=== PATIENT | female | born 1985 | race Caucasian/White ===

== ENCOUNTER 2024-06-12 19:23 | Emergency (ER) | payer OTHER, SELFPAY ==
[2024-06-12 19:27] VITALS: BP 172/107; PULSE 102; RESP 17; TEMP 36.3; O2SAT 97; BMI 33.2
[2024-06-12 21:10] VITALS: BP 135/90; PULSE 88; RESP 17; TEMP 36.8; O2SAT 98
== END 2024-06-12 21:17 | disposition left against medical advice (07) ==
PROVIDERS: Emergency Provider Emergency Medicine
CPT/HCPCS: 99281